=== PATIENT | female | born 1975 ===

== ENCOUNTER 2025-05-04 09:00 | Day surgery (SDC) | payer OTHER ==
[2025-05-04] MEDS ORDERED: FLUMAZENIL 0.5 MG/5 ML ML IV STA (13:32)
[2025-05-04] MEDS ORDERED: fentaNYL CITRATE 50 MCG/ML AMPUL IV PUSH ONE (13:45)
[2025-05-04] MEDS ORDERED: ONDANSETRON HCL 2 MG/ML VIAL IV ONE (13:45)
[2025-05-04] MEDS ORDERED: MIDAZOLAM HCL 2 MG/2 ML VIAL IV ONE (13:45)
[2025-05-04] MEDS ORDERED: DIPHENHYDRAMINE HCL 50 MG/ML VIAL 1ML IV ONE (13:45)
== END 2025-05-04 15:05 | disposition home or self-care (01) ==
LOC: AMB-ENDOS 09:00
PROVIDERS: ATTEND Colon & Rectal Surgery
DX: K63.5 Polyp of colon (principal); K62.5 Hemorrhage of anus and rectum; K57.30 Diverticulosis of large intestine without perforation or abscess without bleeding; Z91.041 Radiographic dye allergy status